=== PATIENT | female | born 1995 | race Caucasian/White ===

== ENCOUNTER → 2019-08-08 | Outpatient (CLI) | payer OTHER ==
[~2019-08-08] MED LIST: FLEXERIL PO; MEDROLDOSEPACK PO; MELOXICAM15 MG PO; ROBAXIN PO; ZYRTEC10 M4 PO
--- NOTE | ~2019-08-08 | PAINCON ---
[address] [address] PAIN MANAGEMENT CONSULTATION Name: SERGEY HUGHES [facility]: [facility] RANDYRosaura Callejas#: [id number] Admission: 08/08/19 Attend Phys: Frances Sapp MD Discharge: Date of : 89 Report #: [id number] THIS REPORT FOR: //name// CC: LEXY Sapp Physician staff DATE OF SERVICE: 08/08/2019 CHIEF COMPLAINT: Cervical pain. HISTORY: The patient is a 24-year-old female who has been referred to the Pain Clinic. Complains of pain and discomfort in the lower portion of her back as well as in the upper portion of her back. She has had pain and discomfort since 08/2018. 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 She has had problems with muscles spasms. She has tried muscle relaxants without significant improvement. She has tried physical therapy. 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 Notes some pain in the mid portion of her back, which is tight. She has tried ibuprofen, but then noticed significant improvement with this medication. She does note that the pain interrupts her sleep. She has been using Flexeril, but still finds that there is quite a bit of stiffness in the mid back area. Sometimes has noted some tingling in her back and down into her arms. Denies any history of osteoarthritis. She has been told that she has some bulging disk and some degeneration on her imaging. Rates her pain as an 8/10 at this juncture. She has been using Robaxin during the day for muscle relaxant as well as Flexeril at bedtime. This medication helps with sleep. She uses meloxicam 15 mg daily. Exacerbating factors are those of standing, bending, and lifting. Notes that use of her medication, heat and rest can be beneficial. ALLERGIES: No known drug allergies. CURRENT MEDICATIONS: Zyrtec 10 mg daily, cyclobenzaprine 10 mg daily p.r.n., Robaxin 500 mg 4 times daily, meloxicam 1 tablet 15 mg daily. PAST MEDICAL HISTORY: Generally good health. PAST SURGICAL HISTORY: [place] teeth extraction in 2017. SOCIAL HISTORY: She works in the [employer]. She is working at this juncture. REVIEW OF SYSTEMS: Generally good health, wears glasses, joint pain, joint stiffness, weakness in muscles and joints, muscle cramps, back pain, numbness and tingling sensation in [place] [address] PAIN MANAGEMENT CONSULTATION Name: SERGEY HUGHES Room: [facility]#: [id number] Admission: 08/08/19 Attend Phys: Frances Sapp MD Discharge: Date of : 93 Report #: [id number] LABORATORY DATA: 1. MRI of the thoracic spine dated 04/2019, reveals alignment and curvature of the thoracic spine is within normal limits. The vertebral body heights are maintained. Marrow signal appears normal. There is no evidence of fracture. 2. There is minimal posterior bulging of the intervertebral disk at T3/T4 and T7 and T8. This does not result in significant central spinal stenosis. This neural foramen appear patent bilaterally at all thoracic levels. The thoracic spinal cord appears intrinsically normal and is normal in caliber. The paraspinous soft tissues are unremarkable. CONCLUSION: 1. Minimal upper thoracic degenerative disk disease. No evidence of significant central or neural foraminal stenosis. 2. Otherwise normal MRI of the thoracic spine. Normal appearance of the thoracic spinal cord. PAIN CLINIC ASSESSMENT/PQRS: 1. The patient is not being treated for osteoarthritis or rheumatoid arthritis. 2. Height 5 feet 7 inches, weight 127 pounds, BMI is 20. 3. Vital signs: Blood pressure 118/68, heart rate 121, respiratory rate 16, room air saturation 99%. 4. Pain intensity, 8/10. 5. Fall risk. The patient has not fallen in the last 3 months. 6. Blood thinner. The patient is not on a blood thinning medication. 7. Hypertension. The patient is not being treated for hypertension. 8. Opioids greater than 6 weeks. The patient is not on a regular opioid regimen. 9. Risk assessment tool, low for opioid use. 10. Functional assessment tool, 32/70. 11. Recreational drug use: The patient denies. 12. Tobacco: The patient denies. 13. Alcohol. The patient denies frequent use of alcoholic beverages. PHYSICAL EXAMINATION: GENERAL: The patient is a well-developed, well-nourished white female. Appears her stated age. She is alert and oriented x 3. Her affect is appropriate. Speech is fluent. HEENT: Normocephalic, atraumatic. Extraocular eye muscles intact. Sclerae nonicteric. Mucous membranes are moist. NECK: Without adenopathy or JVD. HEART: Regular rate. ABDOMEN: Nontender. Bowel sounds present. EXTREMITIES: Upper extremity muscle strength judged to be 5/5 for the major muscle groups in the upper extremity. Deep tendon reflexes are +2 at the biceps bilaterally. Triceps and brachioradialis, difficult to appreciate. The patient has good range of motion in her upper extremities. Sensory exam is generally [facility] [address] [place] [address] PAIN MANAGEMENT CONSULTATION Name: SERGEY HUGHES Room: [facility]#: [id number] Admission: 08/08/19 Attend Phys: Frances Sapp MD Discharge: Date of : 93 Report #: [id number] within normal limits. Lower extremity muscle strength judged to be 5/5 for the major muscle groups. Forward bending to about 75 degrees cause some increased discomfort in the patient's back and limited her ability to lean forward. The patient is able to rise up on her toes. She is able to rise on her heels. Notes that extension of the back cause some increased discomfort in approximately the T12-L1 area. The patient notes some tightness in this area with rotation, left and right. Left and right leaning cause some increased soreness in the low back area as well. Anterior and posterior spring tests are negative. Deep tendon reflexes are +1 at the knees bilaterally. IMPRESSION: 1. Occasional cervical radicular pain down into the arms and hands. 2. Chronic low back and mid back pain. RECOMMENDATIONS: We discussed treatment options with the patient. At this juncture, we will try a conservative approach. The patient will try a Medrol Dosepak, which she will take over the next week. Hopefully, she will notice some improvement in her pain. We will also consider the possibility of using gabapentin. Oftentimes, gabapentin 300 mg 1 p.o. t.i.d. can be helpful sometimes in chronic pain conditions. Also, the possibility of Lyrica is an option. We will evaluate the patient at the time after she returns to the pain clinic. We would like to thank you for letting us participate in her care. We hope she continues to improve. By: [id number]. Brice Sapp MD /nt
== END ==
LOC: M.PC 09:40
DX: M51.34 Other intervertebral disc degeneration, thoracic region (principal); G89.29 Other chronic pain; I10 Essential (primary) hypertension; Z79.899 Other long term (current) drug therapy; Z79.891 Long term (current) use of opiate analgesic

== ENCOUNTER → 2019-09-19 | Outpatient (CLI) | payer OTHER ==
[~2019-09-19] MED LIST changes: +NEURONTIN 300300 M1 PO
--- NOTE | ~2019-09-19 | PAINCON ---
[address] [address] PAIN MANAGEMENT CONSULTATION Name: SERGEY HUGHES Room: [facility] RASHMI Callejas#: [id number] Admission: 09/19/19 Attend Phys: Frances Sapp MD Discharge: Date of : 93 Report #: [id number] THIS REPORT FOR: //name// CC: Yasmany Sapp DATE OF SERVICE: 09/19/2019 CHIEF COMPLAINT: Here because of shoulder and neck pain. The Medrol Dosepak did not stop the pain. HISTORY: The patient is a 24-year-old female who has complained of pain and discomfort in her shoulders as well as the left mid back area. This is an area right below her bra strap. Notes that her pain continues to be problematic. As you may recall, she has tried physical therapy in the past. We did try a Medrol Dosepak to note its efficacy. She has tried medications, which are nonsteroidal anti-inflammatory in nature. Her pain persists in spite of this. She still has some stiffness in her low back area. She has returned today for additional treatment. She would like to consider trigger point injections to the affected area. ALLERGIES: No known drug allergies. CURRENT MEDICATIONS: Zyrtec 10 mg, cyclobenzaprine 10 mg p.r.n., Robaxin 500 mg 4 times daily, meloxicam 15 mg 1 p.o. daily. PAIN CLINIC ASSESSMENT AND PQRS: 1. The patient is not being treated for osteoarthritis or rheumatoid arthritis. 2. Height 5 feet 7 inches, weight 127 pounds, BMI is 20. 3. Vital signs: Blood pressure 108/66, heart rate 107, respiratory rate 16, room air saturation is 100%. 4. Pain intensity, 7-8/10. 5. Blood thinner. The patient is not on a blood thinning medication. 6. Fall history. The patient has not fallen in the last 3 months. 7. Hypertension. The patient is not being treated for hypertension. 8. Opioids greater than 6 weeks. The patient is not receiving an opioid medications on a regular basis. 9. Risk assessment tool, low for opioid use. 10. Functional assessment tool, . 11. Tobacco. The patient denies use of tobacco. 12. Alcohol. The patient denies frequent use of alcoholic beverages. PHYSICAL EXAMINATION: GENERAL: The patient is a well-developed, well-nourished, white female. Appears her stated age. She is alert and oriented x 3. Her affect is appropriate. [place] [address] PAIN MANAGEMENT CONSULTATION Name: SERGEY HUGHES Room: [facility]#: [id number] Admission: 09/19/19 Attend Phys: Frances Sapp MD Discharge: Date of : 93 Report #: [id number] HEENT: Normocephalic, atraumatic. Extraocular eye muscles intact. Sclerae nonicteric. Mucous membranes are moist. NECK: Without adenopathy or JVD. HEART: Regular rate. ABDOMEN: Nontender. EXTREMITIES: Upper extremity muscle strength judged to be 5/5 for the major muscle groups. The patient has a trigger point in the left trapezius muscle as well as the right trapezius muscle. Does have a trigger point in the left paraspinous area at approximately T8-T9. Palpation in this area does reproduce some soreness in all 3 trigger points. Lower extremity muscle strength judged to be 5/5 for the major muscle groups in the lower extremity. IMPRESSION: 1. Myofascial pain, left and right trapezius, left T9/T10 paraspinous muscle area. 2. Occasional cervical radicular pain to the arms and hands. RECOMMENDATIONS: We discussed treatment options with the patient. At this juncture, we will consider trigger point injections. She finds that her pain continues to be problematic. She rates it as a 7-8/10. It depends on activity level. She has pain in the left and right trapezius area. We will proceed with trigger point injections to these areas as well as third trigger point, which is in the left low back area in the T9-T10 paraspinous muscle area. Risks and benefits of the procedure, which could include infection, worsening of pain, nerve damage, tension pneumothorax were discussed and the patient elects to proceed. She was accompanied by her . PROCEDURE NOTE: The patient was taken to the procedure area. She was then assisted in getting on the examination table. Her back was sterilely prepped with a Betadine solution. At the T10-T9 area, a trigger point was identified in the left paraspinous area. A 25-gauge needle was then advanced into this area. The patient states this did reproduce her discomfort. Aspiration was negative. A total of 40 mg triamcinolone was injected. This was then accompanied by 8 mL of 0.5% bupivacaine. This trigger point was treated without consequences. The second trigger point in the left trapezius area was identified. This area was cleansed with a chlorhexidine solution. A 25-gauge needle was then advanced into the area of the trigger point, which was identified in the left trapezius area. Aspiration was negative. A total of 40 mg Depo-Medrol was injected and 5 mL of 0.5% bupivacaine was injected. The third trigger point in the right trapezius area was identified. A 25-gauge needle was then advanced into this area. This area had been sterilely prepped with a chlorhexidine solution as well. Aspiration was negative. A total of 40 mg Depo-Medrol and 5 mL of 0.5% bupivacaine was injected. The patient remained in the pain clinic for an appropriate amount of time. There was no complaint of respiratory problems. She will follow up in the future as needed. The patient will try gabapentin 300 mg 1 p.o. b.i.d. to t.i.d. and note its efficacy. [place] [address] PAIN MANAGEMENT CONSULTATION Name: SAULSERGEY Room: [facility]#: [id number] Admission: 09/19/19 Attend Phys: Franecs Sapp MD Discharge: Date of : 93 Report #: [id number] medication should she note any problems with her sensorium or ability to think clearly. We would like to thank you for letting us participate in her care. We hope she continues to improve. By: [id number] Sapp MD /ANATOLIY
== END | disposition home or self-care (01) ==
LOC: M.PC 08:38
DX: M79.18 Myalgia, other site (principal); M54.12 Radiculopathy, cervical region; G89.29 Other chronic pain; Z98.890 Other specified postprocedural states; Z79.899 Other long term (current) drug therapy